=== PATIENT | female | born 1985 | race Caucasian/White ===

== ENCOUNTER 2016-04-10 21:42 | Emergency (ER) | payer MEDICARE, MEDICAID ==
[~2016-04-10] VITALS: Ht 170.2 cm; Wt 116.1 kg
[2016-04-10] MEDS ORDERED: GEODON80 MG PO (21:49)
[2016-04-10 21:50] VITALS: TEMP 98.1
[2016-04-10] MEDS ORDERED: GLUCOPHAGE1000 MG PO (21:50)
[2016-04-10] MEDS ORDERED: SYNTHROID0.075 MG/T PO (21:50)
[2016-04-10 22:28] LABS: BASO # 0.1 (0.0-0.2); BASO % 0.7 % (0.0-2.0); EOS # 0.4 (0.0-0.7); EOS % 3.6 % (0-4.0); GRAN # 5.5 (1.4-6.5); GRAN % 54.7 % (42.2-75.2); HEMATOCRIT 45.5 % (37.0-47.0); HEMOGLOBIN 15.1 g/dl (12.5-16.0); LYMPH # 3.6 (1.2-3.4); LYMPH % 35.4 % (20.0-51.0); MEAN CELL VOLUME 89 fl (80.0-100.0); MEAN CORPUSCULAR HEMOGLOBIN 29 pg (27.0-31.0); MEAN CORPUSCULAR HGB CONC 33 g/dl (33.0-37.0); MEAN PLATELET VOLUME 10.6 fl (7.4-10.4); MONO # 0.5 (0.1-0.6); MONO % 5.4 % (1.7-9.3); PLATELET COUNT 304 K/mm3 (130-400); RED BLOOD COUNT 5.14 M/mm3 (4.10-5.30); REDCELL DISTRIBUTION WIDTH-CV 12.7 % (11.5-14.5); WHITE BLOOD COUNT 10.1 K/mm3 (4.8-10.8)
[2016-04-10 22:37] LABS: ADJUSTED CALCIUM 9.8 mg/dL (8.4-10.2); ALBUMIN 3.9 gm/dL (3.5-5.0); BILIRUBIN,TOTAL 0.7 mg/dL (0.0-1.0); CALCIUM 9.7 mg/dL (8.4-10.2); CREATININE, serum 1.04 mg/dL (0.52-1.25); MAGNESIUM 2.1 mg/dL (1.6-2.3); PHOSPHOROUS 3.8 mg/dL (2.5-4.5); TOTAL PROTEIN 7.1 gm/dL (6.4-8.2)
[2016-04-10 23:08] LABS: AMPHETAMINE URINE NEGATIVE; BARBITURATES URINE NEGATIVE; BENZODIAZEPINES URINE NEGATIVE; BUPRENORPHINE URINE NEGATIVE; METHADONE URINE NEGATIVE; OPIATES URINE NEGATIVE; OXYCODONE URINE NEGATIVE; PH 5 (5-8); PHENCYCLIDINE URINE NEGATIVE; PROPOXYPHENE URINE NEGATIVE; SQUAMOUS EPITHELIAL 0-2 /hpf; THC CANNABINOIDS URINE NEGATIVE; URINE APPEARANCE Clear; URINE BACTERIA Rare /hpf; URINE BILIRUBIN Negative (NEGATIVE); URINE BLOOD Negative (NEGATIVE); URINE COLOR Yellow; URINE GLUCOSE Negative (NEGATIVE); URINE KETONE Trace (NEGATIVE); URINE RBC 0-2 /hpf; URINE UROBILINOGEN Negative (NEGATIVE); URINE WBC 0-2 /hpf
[2016-04-11 00:08] VITALS: BP 119/84; PULSE 87
[2016-12-01] MEDS ORDERED: ATIVAN 1MG T1 MG/TAB PO (22:08)
[2016-12-02] MEDS ORDERED: FLEXERIL 1010 MG/TAB PO (01:00)
== END 2016-04-11 00:05 | disposition home or self-care (01) ==
LOC: COL.ER 21:42
PROVIDERS: Emergency Medicine
DX: R55 Syncope and collapse (principal); R42 Dizziness and giddiness; R20.2 Paresthesia of skin; R11.2 Nausea with vomiting, unspecified
CPT/HCPCS: J2060; J7030

== ENCOUNTER 2016-06-14 07:10 | Emergency (ER) | payer MEDICARE, MEDICAID ==
[~2016-06-14] VITALS: Ht 170.2 cm; Wt 118.2 kg
[~2016-06-14 07:10] MED LIST: GEODON80 MG PO; GLUCOPHAGE1000 MG PO; SYNTHROID0.075 MG/T PO
[2016-06-14 07:12] VITALS: TEMP 97.8
[2016-06-14 08:04] LABS: BASO # 0.1 (0.0-0.2); BASO % 0.9 % (0.0-2.0); EOS # 0.5 (0.0-0.7); EOS % 6.5 % (0-4.0); GRAN # 3.8 (1.4-6.5); GRAN % 46.5 % (42.2-75.2); HEMOGLOBIN 14.1 g/dl (12.5-16.0); LYMPH # 3.3 (1.2-3.4); LYMPH % 40.6 % (20.0-51.0); MEAN CELL VOLUME 90 fl (80.0-100.0); MEAN CORPUSCULAR HEMOGLOBIN 30 pg (27.0-31.0); MEAN CORPUSCULAR HGB CONC 34 g/dl (33.0-37.0); MEAN PLATELET VOLUME 10.8 fl (7.4-10.4); MONO # 0.4 (0.1-0.6); MONO % 5.4 % (1.7-9.3); PLATELET COUNT 224 K/mm3 (130-400); RED BLOOD COUNT 4.69 M/mm3 (4.10-5.30); WHITE BLOOD COUNT 8.2 K/mm3 (4.8-10.8)
[2016-06-14] MEDS ORDERED: CLOMID50 MG (08:07)
[2016-06-14 08:16] LABS: ADJUSTED CALCIUM 9.4 mg/dL (8.4-10.2); ALBUMIN 3.4 gm/dL (3.5-5.0); BILIRUBIN,TOTAL 0.5 mg/dL (0.0-1.0); C-REACTIVE PROTEIN 0.7 mg/dL (0.0-0.9); CALCIUM 8.9 mg/dL (8.4-10.2); CREATININE, serum 0.95 mg/dL (0.52-1.25); POTASSIUM 3.8 mmol/L (3.4-5.0); TOTAL PROTEIN 6.2 gm/dL (6.4-8.2)
[2016-06-14 09:06] LABS: PH 5 (5-8); URINE APPEARANCE Hazy; URINE BACTERIA Rare /hpf; URINE BILIRUBIN Negative (NEGATIVE); URINE BLOOD Negative (NEGATIVE); URINE COLOR Yellow; URINE GLUCOSE Negative (NEGATIVE); URINE KETONE Negative (NEGATIVE); URINE UROBILINOGEN Negative (NEGATIVE)
[2016-06-14] MEDS ORDERED: CEPHALEXIN500 M1 PO (09:17)
[2016-06-14 09:40] VITALS: BP 117/78; PULSE 82
[2016-12-01] MEDS ORDERED: ATIVAN 1MG T1 MG/TAB PO (22:08)
[2016-12-02] MEDS ORDERED: FLEXERIL 1010 MG/TAB PO (01:00)
== END 2016-06-14 09:40 | disposition home or self-care (01) ==
LOC: COL.ER 07:10
PROVIDERS: Physician Assistant
DX: R11.2 Nausea with vomiting, unspecified (principal); N39.0 Urinary tract infection, site not specified
CPT/HCPCS: J2405; J2550; J7030

== ENCOUNTER 2016-10-16 07:24 | Emergency (ER) | payer MEDICARE, MEDICAID ==
[~2016-10-16] VITALS: Ht 170.2 cm; Wt 113.6 kg
[~2016-10-16 07:24] MED LIST changes: +CEPHALEXIN500 M1 PO; +CLOMID50 MG
[2016-10-16 07:30] VITALS: TEMP 97.4
[2016-10-16] MEDS ORDERED: WELLBUTRIN XL300 M1 PO (07:33)
[2016-10-16] MEDS ORDERED: LAMICTAL 100MG100 MG PO (07:33)
[2016-10-16] MEDS ORDERED: BENADRYL25 M2 PO (07:34)
[2016-10-16 08:14] LABS: PH 5 (5-8); SQUAMOUS EPITHELIAL 0-2 /hpf; URINE APPEARANCE Clear; URINE BACTERIA None Seen /hpf; URINE BILIRUBIN Negative (NEGATIVE); URINE BLOOD 1+ (NEGATIVE); URINE COLOR Yellow; URINE GLUCOSE Negative (NEGATIVE); URINE KETONE Negative (NEGATIVE); URINE RBC 0-2 /hpf; URINE UROBILINOGEN Negative (NEGATIVE); URINE WBC 0-2 /hpf
[2016-10-16 08:24] LABS: AMPHETAMINE URINE NEGATIVE; BARBITURATES URINE NEGATIVE; BENZODIAZEPINES URINE NEGATIVE; BUPRENORPHINE URINE NEGATIVE; METHADONE URINE NEGATIVE; OPIATES URINE NEGATIVE; OXYCODONE URINE NEGATIVE; PHENCYCLIDINE URINE NEGATIVE; PROPOXYPHENE URINE NEGATIVE; THC CANNABINOIDS URINE NEGATIVE
[2016-10-16 08:47] VITALS: BP 121/84; PULSE 88
[2016-12-01] MEDS ORDERED: ATIVAN 1MG T1 MG/TAB PO (22:08)
[2016-12-02] MEDS ORDERED: FLEXERIL 1010 MG/TAB PO (01:00)
== END 2016-10-16 08:53 | disposition home or self-care (01) ==
LOC: COL.ER 07:24
PROVIDERS: Nurse Practitioner
DX: F41.9 Anxiety disorder, unspecified (principal); F20.9 Schizophrenia, unspecified; E03.9 Hypothyroidism, unspecified; E28.2 Polycystic ovarian syndrome

== ENCOUNTER 2016-11-16 14:31 | Emergency (ER) | payer MEDICARE, MEDICAID ==
[~2016-11-16] VITALS: Ht 170.2 cm; Wt 125.0 kg
[~2016-11-16 14:31] MED LIST changes: +BENADRYL25 M2 PO; +LAMICTAL 100MG100 MG PO; +WELLBUTRIN XL300 M1 PO
[2016-11-16 14:39] VITALS: BP 141/80; PULSE 98; TEMP 99
[2016-11-16] MEDS ORDERED: GEODON80 MG PO (15:27)
[2016-12-01] MEDS ORDERED: ATIVAN 1MG T1 MG/TAB PO (22:08)
[2016-12-02] MEDS ORDERED: FLEXERIL 1010 MG/TAB PO (01:00)
== END 2016-11-16 15:36 | disposition home or self-care (01) ==
LOC: COL.ER 14:31
DX: Z76.0 Encounter for issue of repeat prescription (principal); F25.9 Schizoaffective disorder, unspecified; E03.9 Hypothyroidism, unspecified; F17.210 Nicotine dependence, cigarettes, uncomplicated

== ENCOUNTER 2016-11-17 23:36 | Emergency (ER) | payer MEDICARE, MEDICAID ==
[~2016-11-17] VITALS: Ht 170.2 cm; Wt 113.6 kg
[2016-11-17 23:42] VITALS: TEMP 97.6
[2016-11-18 00:27] LABS: BASO # 0.1 (0.0-0.2); BASO % 0.8 % (0.0-2.0); EOS # 0.3 (0.0-0.7); EOS % 2.8 % (0-4.0); GRAN % 60.1 % (42.2-75.2); HEMOGLOBIN 13.7 g/dl (12.5-16.0); LYMPH % 29.8 % (20.0-51.0); MEAN CELL VOLUME 88 fl (80.0-100.0); MEAN CORPUSCULAR HEMOGLOBIN 29 pg (27.0-31.0); MEAN CORPUSCULAR HGB CONC 33 g/dl (33.0-37.0); MONO # 0.6 (0.1-0.6); PLATELET COUNT 288 K/mm3 (130-400); RED BLOOD COUNT 4.76 M/mm3 (4.10-5.30); REDCELL DISTRIBUTION WIDTH-CV 12.9 % (11.5-14.5); WHITE BLOOD COUNT 9.9 K/mm3 (4.8-10.8)
[2016-11-18 00:38] LABS: ADJUSTED CALCIUM 9.2 mg/dL (8.4-10.2); ALANINE AMINOTRANSFERASE 26 U/L (9-52); ALBUMIN 3.9 gm/dL (3.5-5.0); ALKALINE PHOSPHATASE 62 U/L (50-136); ANION GAP 8 mmol/L (7-16); BILIRUBIN,TOTAL 0.5 mg/dL (0.0-1.0); BLOOD UREA NITROGEN 13 mg/dL (7-17); CALCIUM 9.1 mg/dL (8.4-10.2); CARBON DIOXIDE 25 mmol/L (22-30); CHLORIDE 105 mmol/L (98-107); CREATININE, serum 1.07 mg/dL (0.52-1.25); GLUCOSE 94 mg/dL (74-106); SODIUM 139 mmol/L (137-145); TOTAL PROTEIN 6.9 gm/dL (6.4-8.2)
[2016-11-18 01:06] LABS: TROPONIN-I < 0.012 ng/mL (0.000-0.034)
[2016-11-18] MEDS ORDERED: ATIVAN 0.50.5 MG/TAB PO (01:17)
[2016-11-18 01:36] VITALS: BP 141/87; PULSE 90
[2016-12-01] MEDS ORDERED: ATIVAN 1MG T1 MG/TAB PO (22:08)
[2016-12-02] MEDS ORDERED: FLEXERIL 1010 MG/TAB PO (01:00)
== END 2016-11-18 01:37 | disposition home or self-care (01) ==
LOC: COL.ER 23:36
PROVIDERS: Emergency Medicine
DX: F41.9 Anxiety disorder, unspecified (principal); F17.210 Nicotine dependence, cigarettes, uncomplicated

== ENCOUNTER 2017-01-28 22:16 | Emergency (ER) | payer MEDICARE, MEDICAID ==
[~2017-01-28] VITALS: Ht 170.2 cm; Wt 140.9 kg
[~2017-01-28 22:16] MED LIST changes: +ATIVAN 0.50.5 MG/TAB PO; +FLEXERIL 1010 MG/TAB PO
[2017-01-28 22:33] VITALS: BP 134/72; TEMP 97.8
[2017-01-28] MEDS ORDERED: GLUCOPHAGE1000 MG PO (22:38)
[2017-01-28 23:47] LABS: BASO # 0.1 (0.0-0.2); BASO % 0.8 % (0.0-2.0); EOS # 0.3 (0.0-0.7); EOS % 3.2 % (0-4.0); GRAN # 6.8 (1.4-6.5); GRAN % 65.2 % (42.2-75.2); HEMATOCRIT 41.9 % (37.0-47.0); HEMOGLOBIN 13.5 g/dl (12.5-16.0); LYMPH # 2.6 (1.2-3.4); LYMPH % 25.1 % (20.0-51.0); MEAN CELL VOLUME 90 fl (80.0-100.0); MEAN CORPUSCULAR HEMOGLOBIN 29 pg (27.0-31.0); MEAN CORPUSCULAR HGB CONC 32 g/dl (33.0-37.0); MEAN PLATELET VOLUME 10.1 fl (7.4-10.4); MONO # 0.6 (0.1-0.6); MONO % 5.4 % (1.7-9.3); PLATELET COUNT 283 K/mm3 (130-400); RED BLOOD COUNT 4.66 M/mm3 (4.10-5.30); WHITE BLOOD COUNT 10.4 K/mm3 (4.8-10.8)
[2017-01-28 23:58] LABS: ADJUSTED CALCIUM 9.6 mg/dL (8.4-10.2); BILIRUBIN,TOTAL 0.4 mg/dL (0.0-1.0); CALCIUM 9.6 mg/dL (8.4-10.2); CREATININE, serum 1.01 mg/dL (0.52-1.25); TOTAL PROTEIN 6.4 gm/dL (6.4-8.2)
[2017-01-29 00:38] LABS: COLLECTION METHOD CLEAN CATCH
[2017-01-29 00:53] LABS: MUCOUS Present /lpf; PH 6 (5-8); URINE APPEARANCE Cloudy; URINE BACTERIA None Seen /hpf; URINE BILIRUBIN Negative (NEGATIVE); URINE BLOOD Negative (NEGATIVE); URINE COLOR Yellow; URINE GLUCOSE Negative (NEGATIVE); URINE KETONE Negative (NEGATIVE); URINE LEUKOCYTE ESTERASE Negative (NEGATIVE); URINE PROTEIN(semi-quant) Negative (NEGATIVE); URINE RBC 0-2 /hpf; URINE UROBILINOGEN Negative (NEGATIVE); URINE WBC 0-2 /hpf
[2017-01-29 01:00] VITALS: PULSE 85
== END 2017-01-29 01:00 | disposition home or self-care (01) ==
LOC: COL.ER 22:16
PROVIDERS: Emergency Medicine
DX: R10.9 Unspecified abdominal pain (principal)
CPT/HCPCS: J1170; J2405; J2550; J7030

== ENCOUNTER 2017-02-07 19:39 | Emergency (ER) | payer MEDICARE, MEDICAID ==
[~2017-02-07] VITALS: Ht 177.8 cm; Wt 127.3 kg
[2017-02-07 19:41] VITALS: TEMP 99
[2017-02-07] MEDS ORDERED: PREDNISONE20 MG PO (20:03)
[2017-02-07 20:31] VITALS: BP 132/80; PULSE 91
== END 2017-02-07 20:32 | disposition home or self-care (01) ==
LOC: COL.ER 19:39
DX: J45.901 Unspecified asthma with (acute) exacerbation (principal); E03.9 Hypothyroidism, unspecified; F25.9 Schizoaffective disorder, unspecified; E28.2 Polycystic ovarian syndrome; F17.210 Nicotine dependence, cigarettes, uncomplicated; Z90.89 Acquired absence of other organs
CPT/HCPCS: J7512

== ENCOUNTER 2017-02-20 06:57 | Emergency (ER) | payer MEDICARE, MEDICAID ==
[~2017-02-20] VITALS: Ht 170.2 cm; Wt 131.8 kg
[~2017-02-20 06:57] MED LIST changes: +PREDNISONE20 MG PO
[2017-02-20 07:02] VITALS: BP 132/62; TEMP 98
[2017-02-20] MEDS ORDERED: PREDNISONE20 MG PO (07:32)
[2017-02-20 08:00] VITALS: PULSE 89
== END 2017-02-20 08:02 | disposition home or self-care (01) ==
LOC: COL.ER 06:57
DX: J45.909 Unspecified asthma, uncomplicated (principal); E03.9 Hypothyroidism, unspecified; F25.9 Schizoaffective disorder, unspecified; F17.210 Nicotine dependence, cigarettes, uncomplicated; Z90.49 Acquired absence of other specified parts of digestive tract; Z79.84 Long term (current) use of oral hypoglycemic drugs

== ENCOUNTER 2017-03-09 20:03 | Emergency (ER) | payer MEDICARE, MEDICAID ==
[~2017-03-09] VITALS: Ht 170.2 cm; Wt 125.0 kg
[2017-03-09 20:08] VITALS: TEMP 98.5
[2017-03-09 20:44] LABS: COLLECTION METHOD CLEAN CATCH
[2017-03-09 20:51] LABS: MUCOUS Present /lpf; PH 5 (5-8); SQUAMOUS EPITHELIAL 0-2 /hpf; URINE APPEARANCE Clear; URINE BACTERIA Rare /hpf; URINE BILIRUBIN Negative (NEGATIVE); URINE BLOOD Negative (NEGATIVE); URINE COLOR Yellow; URINE GLUCOSE Negative (NEGATIVE); URINE KETONE Negative (NEGATIVE); URINE LEUKOCYTE ESTERASE Negative (NEGATIVE); URINE PROTEIN(semi-quant) Negative (NEGATIVE); URINE RBC 0-2 /hpf; URINE UROBILINOGEN Negative (NEGATIVE); URINE WBC 0-2 /hpf
[2017-03-09 21:12] VITALS: BP 142/98; PULSE 96
[2017-03-10] MEDS ORDERED: FLEXERIL 1010 MG/TAB PO (16:26)
== END 2017-03-09 21:13 | disposition home or self-care (01) ==
LOC: COL.ER 20:03
PROVIDERS: Physician Assistant
DX: S29.012A Strain of muscle and tendon of back wall of thorax, initial encounter (principal); E03.9 Hypothyroidism, unspecified; F25.9 Schizoaffective disorder, unspecified; F17.210 Nicotine dependence, cigarettes, uncomplicated; Z79.84 Long term (current) use of oral hypoglycemic drugs; W01.0XXA Fall on same level from slipping, tripping and stumbling without subsequent striking against object, initial encounter; Y92.009 Unspecified place in unspecified non-institutional (private) residence as the place of occurrence of the external cause

== ENCOUNTER 2017-03-10 14:22 | Emergency (ER) | payer MEDICARE ==
[~2017-03-10] VITALS: Ht 170.2 cm; Wt 125.0 kg
[2017-03-10 14:25] VITALS: BP 139/91; TEMP 98.5
[2017-03-10] MEDS ORDERED: FLEXERIL 1010 MG/TAB PO (16:26)
[2017-03-10 16:47] VITALS: PULSE 110
== END 2017-03-10 16:48 | disposition home or self-care (01) ==
LOC: COL.ER 14:22
DX: M54.6 Pain in thoracic spine (principal); R25.2 Cramp and spasm; M62.830 Muscle spasm of back; E03.9 Hypothyroidism, unspecified; F31.9 Bipolar disorder, unspecified; F17.210 Nicotine dependence, cigarettes, uncomplicated; Z90.89 Acquired absence of other organs; Z79.84 Long term (current) use of oral hypoglycemic drugs
CPT/HCPCS: J1885

== ENCOUNTER 2017-04-11 03:50 | Emergency (ER) | payer MEDICARE ==
[~2017-04-11] VITALS: Ht 170.2 cm; Wt 136.4 kg
[2017-04-11] MEDS ORDERED: RT ADVAIR 128 DISKUS IH (04:00)
[2017-04-11] MEDS ORDERED: PREDNISONE20 MG PO (05:34)
[2017-04-11] MEDS ORDERED: PROAIR HFA0.09 MG/AC IH (05:34)
[2017-04-11] MEDS ORDERED: ZITHROMAX Z PA250 MG PO (05:35)
[2017-04-11 05:51] VITALS: TEMP 100.2
[2017-04-11 06:10] VITALS: BP 145/105; PULSE 111
== END 2017-04-11 06:10 | disposition home or self-care (01) ==
LOC: COL.ER 03:50
DX: J45.901 Unspecified asthma with (acute) exacerbation (principal); J06.9 Acute upper respiratory infection, unspecified; Z87.891 Personal history of nicotine dependence; E03.9 Hypothyroidism, unspecified; F25.9 Schizoaffective disorder, unspecified
CPT/HCPCS: J7512

== ENCOUNTER 2017-04-13 23:43 | Emergency (ER) | payer MEDICARE ==
[~2017-04-13] VITALS: Ht 170.2 cm; Wt 136.4 kg
[~2017-04-13 23:43] MED LIST changes: +PROAIR HFA0.09 MG/AC IH; +RT ADVAIR 128 DISKUS IH; +ZITHROMAX Z PA250 MG PO
[2017-04-13 23:44] VITALS: BP 154/87; TEMP 97.7
[2017-04-14 00:56] LABS: INFLUENZA A NEGATIVE; INFLUENZA B NEGATIVE
[2017-04-14] MEDS ORDERED: RT ALBUTER2.5 MG/0.5 IH (02:21)
[2017-04-14 02:35] VITALS: PULSE 97
== END 2017-04-14 02:36 | disposition home or self-care (01) ==
LOC: COL.ER 23:43
PROVIDERS: Nurse Practitioner
DX: J45.901 Unspecified asthma with (acute) exacerbation (principal); F31.9 Bipolar disorder, unspecified; Z87.891 Personal history of nicotine dependence; Z79.84 Long term (current) use of oral hypoglycemic drugs

== ENCOUNTER → 2017-04-22 | Outpatient (CLI) | payer MEDICARE ==
[~2017-04-22] MED LIST changes: +RT ALBUTER2.5 MG/0.5 IH
[2017-04-22 10:20] LABS: BASO # 0.1 (0.0-0.2); BASO % 0.8 % (0.0-2.0); EOS # 0.3 (0.0-0.7); GRAN # 5.9 (1.4-6.5); GRAN % 60.7 % (42.2-75.2); HEMATOCRIT 42.9 % (37.0-47.0); LYMPH # 2.8 (1.2-3.4); LYMPH % 28.4 % (20.0-51.0); MEAN CELL VOLUME 89 fl (80.0-100.0); MEAN CORPUSCULAR HEMOGLOBIN 29 pg (27.0-31.0); MEAN CORPUSCULAR HGB CONC 33 g/dl (33.0-37.0); MEAN PLATELET VOLUME 10.4 fl (7.4-10.4); MONO # 0.7 (0.1-0.6); MONO % 6.9 % (1.7-9.3); PLATELET COUNT 300 K/mm3 (130-400); RED BLOOD COUNT 4.82 M/mm3 (4.10-5.30); REDCELL DISTRIBUTION WIDTH-CV 13.2 % (11.5-14.5)
[2017-04-22 10:33] LABS: ALBUMIN 3.6 gm/dL (3.5-5.0); BILIRUBIN,TOTAL 0.4 mg/dL (0.0-1.0); CALCIUM 9.3 mg/dL (8.4-10.2); CHOLESTEROL RISK RATIO 5.1; CREATININE, serum 1.05 mg/dL (0.52-1.25); POTASSIUM 4.1 mmol/L (3.4-5.0); TOTAL PROTEIN 6.4 gm/dL (6.4-8.2)
[2017-04-22 11:02] LABS: TSH w REFLEX 0.919 uIU/mL (0.465-4.680)
== END ==
LOC: COL.RAD 09:55
PROVIDERS: Nurse Practitioner
DX: M25.475 Effusion, left foot (principal); M25.472 Effusion, left ankle; J45.909 Unspecified asthma, uncomplicated; G47.30 Sleep apnea, unspecified; E03.9 Hypothyroidism, unspecified

== ENCOUNTER → 2017-05-04 | Outpatient (CLI) | payer MEDICARE | LOC: COL.RAD 09:31 | DX: R10.84 Generalized abdominal pain (principal) ==

== ENCOUNTER → 2017-07-22 | Outpatient (CLI) | payer MEDICARE ==
[~2017-07-22] VITALS: Ht 174 cm; Wt 153.5 kg
[~2017-07-22] MED LIST changes: -LAMICTAL 100MG100 MG PO; +LAMICTAL200 MG PO
[2017-07-22 08:34] VITALS: BP 110/70; PULSE 88
== END ==
LOC: LIGHT 07-02 14:10
DX: M54.5 Low back pain (principal); F32.89 Other specified depressive episodes; K21.9 Gastro-esophageal reflux disease without esophagitis; E78.5 Hyperlipidemia, unspecified; Z68.43 Body mass index [BMI] 50.0-59.9, adult; Z71.3 Dietary counseling and surveillance

== ENCOUNTER → 2017-08-04 | Outpatient (CLI) | payer MEDICARE, MEDICAID | LOC: LIGHT 15:28 | DX: Z01.89 Encounter for other specified special examinations (principal) ==

== ENCOUNTER → 2017-08-25 | Outpatient (CLI) | payer MEDICARE, MEDICAID ==
[~2017-08-25] VITALS: Ht 174 cm; Wt 149.0 kg
[2017-08-25 16:55] VITALS: BP 114/84; PULSE 64
== END ==
LOC: LIGHT 16:29
DX: M54.5 Low back pain (principal); F32.89 Other specified depressive episodes; K21.9 Gastro-esophageal reflux disease without esophagitis; E78.5 Hyperlipidemia, unspecified; Z68.42 Body mass index [BMI] 45.0-49.9, adult; Z71.3 Dietary counseling and surveillance
CPT/HCPCS: G0463

== ENCOUNTER 2017-09-21 08:39 | Emergency (ER) | payer MEDICARE, MEDICAID ==
[~2017-09-21] VITALS: Ht 170.2 cm; Wt 145.5 kg
[2017-09-21 08:42] VITALS: TEMP 98.4
[2017-09-21 09:06] LABS: COLLECTION METHOD CLEAN CATCH
[2017-09-21 09:17] LABS: MUCOUS Present /lpf; PH 6 (5-8); URINE APPEARANCE Cloudy; URINE BACTERIA Moderate /hpf; URINE BILIRUBIN Negative (NEGATIVE); URINE BLOOD 1+ (NEGATIVE); URINE COLOR Yellow; URINE GLUCOSE Negative (NEGATIVE); URINE KETONE Negative (NEGATIVE); URINE LEUKOCYTE ESTERASE 2+ (NEGATIVE); URINE NITRATE Positive (NEGATIVE); URINE PROTEIN(semi-quant) Negative (NEGATIVE); URINE UROBILINOGEN Negative (NEGATIVE)
[2017-09-21] MEDS ORDERED: CEPHALEXIN500 M1 PO (09:36)
[2017-09-21] MEDS ORDERED: PYRIDIUM200 M1 PO (09:36)
[2017-09-21] MEDS ORDERED: FLEXERIL 1010 MG/TAB PO (09:36)
[2017-09-21 10:01] VITALS: BP 136/76; PULSE 86
== END 2017-09-21 10:02 | disposition home or self-care (01) ==
LOC: COL.ER 08:39
PROVIDERS: Physician Assistant
DX: N39.0 Urinary tract infection, site not specified (principal); F25.9 Schizoaffective disorder, unspecified; F17.210 Nicotine dependence, cigarettes, uncomplicated; F12.90 Cannabis use, unspecified, uncomplicated; Z79.84 Long term (current) use of oral hypoglycemic drugs; Z79.51 Long term (current) use of inhaled steroids
CPT/HCPCS: J1885

== ENCOUNTER 2017-12-08 06:20 | Emergency (ER) | payer MEDICARE, MEDICAID ==
[~2017-12-08] VITALS: Ht 170.2 cm; Wt 145.5 kg
[~2017-12-08 06:20] MED LIST changes: +PYRIDIUM200 M1 PO
[2017-12-08 06:26] VITALS: BP 119/93; TEMP 98.3
[2017-12-08] MEDS ORDERED: IPRATROPIUM BROM3 M1 IH (06:39)
[2017-12-08] MEDS ORDERED: PREDNISONE20 MG PO (06:39)
[2017-12-08] MEDS ORDERED: WELLBUTRIN SR100 M1 PO (07:13)
[2017-12-08] MEDS ORDERED: PROVIGIL200 MG PO (07:14)
[2017-12-08] MEDS ORDERED: NEURONTIN100 MG/CAP PO (07:14)
[2017-12-08] MEDS ORDERED: CHERATUSSIN AC120 ML PO (07:22)
[2017-12-08 08:24] VITALS: PULSE 91
== END 2017-12-08 08:25 | disposition home or self-care (01) ==
LOC: COL.ER 06:20
DX: J45.901 Unspecified asthma with (acute) exacerbation (principal); F31.9 Bipolar disorder, unspecified; F17.210 Nicotine dependence, cigarettes, uncomplicated
CPT/HCPCS: J7512

== ENCOUNTER → 2018-01-28 | Outpatient (CLI) | payer MEDICARE, MEDICAID ==
[~2018-01-28] VITALS: Ht 170.2 cm; Wt 146.5 kg
[~2018-01-28] MED LIST changes: +CHERATUSSIN AC120 ML PO; +IPRATROPIUM BROM3 M1 IH; +NEURONTIN100 MG/CAP PO; +PROVIGIL200 MG PO; +WELLBUTRIN SR100 M1 PO
[2018-01-28 09:24] VITALS: BP 108/78; PULSE 64
== END ==
LOC: LIGHT
DX: M54.5 Low back pain (principal); F32.9 Major depressive disorder, single episode, unspecified; K21.9 Gastro-esophageal reflux disease without esophagitis; E78.5 Hyperlipidemia, unspecified; Z68.43 Body mass index [BMI] 50.0-59.9, adult; E66.01 Morbid (severe) obesity due to excess calories; Z71.3 Dietary counseling and surveillance
CPT/HCPCS: G0463

== ENCOUNTER → 2018-04-15 | Outpatient (CLI) | payer MEDICARE, MEDICAID ==
[~2018-04-15] VITALS: Ht 170.2 cm; Wt 138.1 kg
[~2018-04-15] MED LIST changes: +ADIPEX-P37.5 MG PO; -NEURONTIN100 MG/CAP PO; +NEURONTIN300 MG/CAP PO; +XANAX 0.5MG0.5 MG PO
[2018-04-15 13:46] VITALS: BP 90/64; PULSE 108
== END ==
LOC: LIGHT 03-11 12:58
DX: M54.5 Low back pain (principal); F32.9 Major depressive disorder, single episode, unspecified; K21.9 Gastro-esophageal reflux disease without esophagitis; E78.5 Hyperlipidemia, unspecified; Z68.42 Body mass index [BMI] 45.0-49.9, adult; Z71.3 Dietary counseling and surveillance
CPT/HCPCS: G0463

== ENCOUNTER 2018-05-01 07:59 | Emergency (ER) | payer MEDICARE ==
[~2018-05-01] VITALS: Ht 172.7 cm; Wt 139.5 kg
[2018-05-01 08:05] VITALS: BP 114/78; TEMP 97.7
[2018-05-01] MEDS ORDERED: ZITHROMAX Z PA250 MG PO (09:20)
[2018-05-01 09:45] VITALS: PULSE 96
== END 2018-05-01 09:47 | disposition home or self-care (01) ==
LOC: COL.ER 07:59
DX: J45.901 Unspecified asthma with (acute) exacerbation (principal); F41.9 Anxiety disorder, unspecified; F17.210 Nicotine dependence, cigarettes, uncomplicated
CPT/HCPCS: J1100

== ENCOUNTER → 2018-06-03 | Outpatient (CLI) | payer MEDICARE ==
[~2018-06-03] VITALS: Ht 172.7 cm; Wt 137.9 kg
[2018-06-03 11:55] VITALS: BP 108/64; PULSE 60
== END ==
LOC: LIGHT 11:35
DX: M54.5 Low back pain (principal); F32.9 Major depressive disorder, single episode, unspecified; K21.9 Gastro-esophageal reflux disease without esophagitis; E78.5 Hyperlipidemia, unspecified; Z68.42 Body mass index [BMI] 45.0-49.9, adult; Z71.3 Dietary counseling and surveillance
CPT/HCPCS: G0463

== ENCOUNTER → 2018-07-01 | Outpatient (CLI) | payer MEDICARE ==
[~2018-07-01] VITALS: Ht 172.7 cm; Wt 133.8 kg
[2018-07-01 14:07] VITALS: BP 126/84; PULSE 112
== END ==
LOC: LIGHT 10:56
DX: M54.5 Low back pain (principal); F32.9 Major depressive disorder, single episode, unspecified; E78.5 Hyperlipidemia, unspecified; K21.9 Gastro-esophageal reflux disease without esophagitis; Z68.41 Body mass index [BMI] 40.0-44.9, adult; Z71.3 Dietary counseling and surveillance
CPT/HCPCS: G0463

== ENCOUNTER → 2018-08-12 | Outpatient (CLI) | payer MEDICARE ==
[~2018-08-12] VITALS: Ht 172.7 cm; Wt 127.7 kg
[~2018-08-12] MED LIST changes: +GLUCOPHAGE500 MG/TAB PO
[2018-08-12 13:04] VITALS: BP 120/90; PULSE 88
== END ==
LOC: LIGHT 12:56
DX: M54.5 Low back pain (principal); F32.9 Major depressive disorder, single episode, unspecified; K21.9 Gastro-esophageal reflux disease without esophagitis; E78.5 Hyperlipidemia, unspecified; Z68.41 Body mass index [BMI] 40.0-44.9, adult; Z71.3 Dietary counseling and surveillance
CPT/HCPCS: G0463

== ENCOUNTER → 2018-09-23 | Outpatient (CLI) | payer MEDICARE ==
[~2018-09-23] VITALS: Ht 172.7 cm; Wt 124.1 kg
[2018-09-23 13:19] VITALS: BP 120/70; PULSE 76
== END ==
LOC: LIGHT 13:04
DX: M54.5 Low back pain (principal); F32.9 Major depressive disorder, single episode, unspecified; K21.9 Gastro-esophageal reflux disease without esophagitis; E78.5 Hyperlipidemia, unspecified; Z68.41 Body mass index [BMI] 40.0-44.9, adult; Z71.3 Dietary counseling and surveillance
CPT/HCPCS: G0463

== ENCOUNTER 2019-02-10 11:41 | Emergency (ER) | payer MEDICARE ==
[~2019-02-10] VITALS: Ht 172.7 cm; Wt 113.6 kg
[2019-02-10 11:53] VITALS: BP 115/83; TEMP 97.3
[2019-02-10] MEDS ORDERED: GEODON80 MG PO (12:18)
[2019-02-10 13:15] VITALS: PULSE 88
== END 2019-02-10 13:15 | disposition home or self-care (01) ==
LOC: COL.ER 11:41
DX: M67.472 Ganglion, left ankle and foot (principal); J45.909 Unspecified asthma, uncomplicated; F41.9 Anxiety disorder, unspecified; F17.210 Nicotine dependence, cigarettes, uncomplicated; Z90.89 Acquired absence of other organs; Z90.49 Acquired absence of other specified parts of digestive tract; Z76.0 Encounter for issue of repeat prescription

== ENCOUNTER 2019-05-04 18:37 | Emergency (ER) | payer MEDICARE ==
[~2019-05-04] VITALS: Ht 172.7 cm; Wt 113.6 kg
[2019-05-04 18:44] VITALS: BP 138/89; PULSE 96; TEMP 97.3
[2019-05-04] MEDS ORDERED: GEODON80 MG PO (20:09)
[2019-05-04] MEDS ORDERED: CATAPRES 0.1MG0.1 MG PO (20:10)
== END 2019-05-04 20:20 | disposition home or self-care (01) ==
LOC: COL.ER 18:37
DX: F41.9 Anxiety disorder, unspecified (principal); Z76.0 Encounter for issue of repeat prescription

== ENCOUNTER 2019-08-01 11:57 | Emergency (ER) | payer MEDICARE ==
[~2019-08-01] VITALS: Ht 172.7 cm; Wt 113.6 kg
[~2019-08-01 11:57] MED LIST changes: +CATAPRES 0.1MG0.1 MG PO
[2019-08-01 12:05] VITALS: BP 127/78; TEMP 97
[2019-08-01] MEDS ORDERED: FLONASE NASAL S16 GM NS (12:24)
[2019-08-01 12:30] VITALS: PULSE 88
== END 2019-08-01 12:31 | disposition home or self-care (01) ==
LOC: COL.ER 11:57
DX: H69.81 Other specified disorders of Eustachian tube, right ear (principal); J00 Acute nasopharyngitis [common cold]; F31.9 Bipolar disorder, unspecified; F17.210 Nicotine dependence, cigarettes, uncomplicated